=== PATIENT | female | born 1985 | race Caucasian/White ===

== ENCOUNTER 2020-07-08 13:01 | Emergency (ER) | payer MEDICAID, SELFPAY ==
[2020-07-08] VITALS (8 sets, daily range): BP systolic 90–102; BP diastolic 60–75; PULSE 77–107; RESP 17–33; TEMP 36.5–36.6; O2SAT 96–100; BMI 21.7
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
--- NOTE | 2020-07-08 13:06 | EKG12_ITS ---
Test Reason : SEIZURE Blood Pressure : / mmHG Vent. Rate : 085 BPM Atrial Rate : 085 BPM P-R Int : 164 ms QRS Dur : 088 ms QT Int : 372 ms P-R-T Axes : 053 052 041 degrees QTc Int : 442 ms Normal sinus rhythm Normal ECG Confirmed by ASHLEY STEWARD, ALISIA ([id number]), editor house organ FRANK FRANCO ([id number]) on 07/14/2020 11:03:35 AM Referred By: TANYA/ALFREDO Confirmed By:AMY RAMIREZ MD
[2020-07-08] MEDS: LORazepam 2 MG/ML Syringe IV ×2 (13:11→19:24)
[2020-07-08] MEDS: 0.9% Normal Saline 1,000 ML 1000 ML IV (13:21)
[2020-07-08 13:35] LABS: Absolute Neutrophil Count 5.9 X10^3/uL (2.0-7.7); Basophil# 0.06 X10^3/uL; Basophil% 0.7 % (0-1); Eosinophil# 0.25 X10^3/uL; Eosinophils% 2.9 % (0-5); Hemoglobin 14.3 g/dL (12.0-15.0); Lymphocyte % 23.1 % (19-41); Mean Corp Hgb Conc 30.4 g/dL (32-36); Mean Platelet Vol. 11.1 fl (6.2-12.0); Monocyte# 0.42 X10^3/uL; Monocyte% 4.9 % (0-10); NRBC Flagged by Analyzer 0 % (0-5); Neutrophil # 5.88 X10^3/uL (2.7-7.7); Neutrophil % 67.9 % (47-70); Platelet Count 401 K/mm3 (150-450); Red Blood Count 5.73 M/mm3 (4.2-5.4); White Blood Count 8.7 K/mm3 (4.4-11.0)
[2020-07-08 13:40] LABS: Internal QC Validated? YES +Cl - CLEAR BKGD; Pregnancy, Serum, hCG Quali. NEGATIVE Negative
[2020-07-08 13:48] LABS: Anion Gap 19 (5-15); BUN 8 mg/dL (7-18); Chloride 104 mmol/L (98-107); Creatinine, Serum 1.14 mg/dL (0.55-1.02); Glucose 312 mg/dL (74-106); Potassium 3.8 mmol/L (3.5-5.1); Sodium Level 136 mmol/L (136-145)
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
--- NOTE | 2020-07-08 13:55 | ED.RN ---
PT STATES SHE IS SUPPOSED TO TAKE SEIZURE MEDS, BUT CURRENTLY TAKES NO MEDICATIONS.
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
--- NOTE | 2020-07-08 14:16 | ED.RN ---
THIS NURSE CONTACT OLIVER HORTON
--- NOTE | 2020-07-08 14:54 | ED.RN ---
FRIEND SOULEYMANE CALLED IN TO CHECK ON PT, INFORMED PT STATES SHE DOES NOT WANT TO TALK TO ANYONE OR ANY INFORMATION GIVEN ABOUT HER.
[2020-07-08 15:06] LABS: Bedside Glucose 270 mg/dL (70-110)
[2020-07-08 15:24] LABS: EST Glomerular Filtration Rate 57 mL/min (>60); Est Glom Filt Rate - Afr Amer 69 mL/min (>60)
[2020-07-08 16:22] LABS: CPK Total, Creatine Kinase 75 U/L (26-192)
[2020-07-08] MEDS: 0.9% Normal Saline 1,000 ML 999 ML IV (16:22)
--- NOTE | 2020-07-08 19:38 | ED.RN ---
nurse called to room by CLAUDY cai patient having tonic clonic seizure at this time. Dr. Vallejo paged to room. Patient given 2 mg IV ativan. Patient post dictal at time of leaving. Room patient still slightly confused . CLAUDY nurse remains at the bedside
[2020-07-08 19:40] LABS: Bacteria 0 SEEN /hpf (None Seen); Mucous, Urine 0 SEEN /hpf (<or=2+); White Blood Cells 0 SEEN /hpf (0-5)
[2020-07-08 19:58] LABS: Color, Urine Yellow (Yellow); Glucose, Dipstick 1000 mg/dl (Normal); Ketone-Dipstick 5 mg/dl (Negative); Leukocyte Esterase-Dipstick Negative /ul (Negative); Nitrite-Dipstick Negative (Negative); Occult Blood-Urine 250 /ul (Negative); Protein-Dipstick Negative (Negative); Urine Bilirubin Dipstick Negative (Negative); Urine Clarity Sl. Cloudy (Clear); Urine Urobilinogen Normal (Normal)
[2020-07-08 19:59] LABS: Amphetamine Urine VISTA NEGATIVE (<1000 ng/mL); Barbiturate Urine VISTA NEGATIVE (< 200 ng/mL); Benzodiazepine Urine VISTA NEGATIVE (< 200 ng/mL); Cocaine Urine VISTA POSITIVE (< 300 ng/mL); Ecstacy Urine VISTA NEGATIVE (< 500 ng/mL); Methadone Urine VISTA NEGATIVE (< 300 ng/mL); PCP Urine VISTA NEGATIVE (< 25 ng/mL); THC Urine VISTA POSITIVE (< 50 ng/mL); Vista UDS pH Range 6
[2020-07-08] MEDS: levETIRAcetam IV 1,000 MG/100 ML BAG 400 MG IV (20:07)
--- NOTE | 2020-07-08 20:18 | ED.RN ---
Patients friend called in and checked on patient. Patient unable to speak at this time. Family requesting if patient requires transfer to be sent to [facility]. Left phone numbers to call when patient wants to speak to some one Renetta Simms [phone] Gini [phone]
[2020-07-08 20:34] LABS: Red Blood Cells-Urine 10-25 SEEN /hpf (0-5)
[2020-07-08 20:36] LABS: Squamous Epithelial Cells - UA 0-5 SEEN /hpf (5-10)
--- NOTE | 2020-07-08 23:01 | ED.RN ---
friend geovanna called in to check patient, no information given at this time
--- NOTE | 2020-07-08 23:27 | ED.RN ---
pt did not want information given to friend Gini, .
[2020-07-08 23:34] LABS: Anion Gap 6 (5-15); BUN 6 mg/dL (7-18); BUN/Creat Ratio 8.3 RATIO (10-20); Chloride 112 mmol/L (98-107); Creatinine, Serum 0.72 mg/dL (0.55-1.02); EST Glomerular Filtration Rate 97 mL/min (>60); Est Glom Filt Rate - Afr Amer 117 mL/min (>60); Estimated Creatinine Clearance 96.26 ml/min; Glucose 295 mg/dL (74-106); Potassium 3.6 mmol/L (3.5-5.1); Sodium Level 139 mmol/L (136-145)
== END 2020-07-08 23:45 | disposition short-term general hospital (02) ==
PROVIDERS: Student in an Organized Health Care Education/Training Program; Emergency Provider Emergency Medicine
DX: G40.909 Epilepsy, unspecified, not intractable, without status epilepticus (principal); T43.622A Poisoning by amphetamines, intentional self-harm, initial encounter; R45.851 Suicidal ideations; E11.65 Type 2 diabetes mellitus with hyperglycemia; E87.2 Acidosis; N93.9 Abnormal uterine and vaginal bleeding, unspecified; Y04.0XXA Assault by unarmed brawl or fight, initial encounter; T76.21XA Adult sexual abuse, suspected, initial encounter; Y93.9 Activity, unspecified; Y92.9 Unspecified place or not applicable; Z91.14 Patient's other noncompliance with medication regimen; G83.84 Todd's paralysis (postepileptic); F12.10 Cannabis abuse, uncomplicated; F14.10 Cocaine abuse, uncomplicated; F20.9 Schizophrenia, unspecified; F31.9 Bipolar disorder, unspecified; F43.10 Post-traumatic stress disorder, unspecified
CPT/HCPCS: 70450; 71045; 71260; 72125; 74177; 80048; 80307; 80320; 81001; 82009; 82550; 82962; 84703; 85025; 87635; 93005; 96361; 96365; 96374; 96376; 99285; J7030; J7050; Q9967; A4216; G0480; U0003

== ENCOUNTER 2020-07-08 18:05 | Outpatient (REF) | payer SELFPAY ==
[2020-07-08 13:02] VITALS: BMI 21.7
== END 2020-07-08 22:05 | disposition home or self-care (01) ==
LOC: EDREF 18:05
DX: Z04.41 Encounter for examination and observation following alleged adult rape (principal)